=== PATIENT | female | born 1990 | race Caucasian/White ===

== ENCOUNTER 2017-03-28 01:40 | Emergency (ER) | payer MEDICAID ==
[~2017-03-28] VITALS: Ht 157.5 cm; Wt 88.0 kg
[2017-03-28 01:43] VITALS: Ht 157.5 cm; Wt 88.0 kg
[2017-03-28 02:02] VITALS: BP 140/80
== END 2017-03-28 02:02 | disposition home or self-care (01) ==
LOC: ED 01:40
DX: H60.91 Unspecified otitis externa, right ear (principal)

== ENCOUNTER 2019-11-25 20:45 | Emergency (ER) | payer MEDICAID ==
[~2019-11-25] VITALS: Ht 157.5 cm; Wt 90.3 kg
[2019-11-25 21:06] VITALS: Ht 157.5 cm; Wt 90.3 kg
[2019-11-25 22:13] VITALS: BP 119/76
== END 2019-11-25 22:13 | disposition home or self-care (01) ==
LOC: ED 20:45
DX: L03.115 Cellulitis of right lower limb (principal); J45.909 Unspecified asthma, uncomplicated; F17.210 Nicotine dependence, cigarettes, uncomplicated; Z90.49 Acquired absence of other specified parts of digestive tract
CPT/HCPCS: J0696; J1885